=== PATIENT | female | born 1950 | race Caucasian/White ===

== ENCOUNTER 2018-12-28 16:11 | Inpatient (IN) | payer MEDICARE, MEDICAID ==
[~2018-12-28] VITALS: Ht 165.1 cm; Wt 92.7 kg
[2018-12-28] MEDS ORDERED: aspirin 81mg tab.chew PO ONE ×2 (16:20→17:10)
[2018-12-28] MEDS ORDERED: PARO20TA6 PO (16:31)
[2018-12-28] MEDS ORDERED: CARV-50 PO (16:31)
[2018-12-28] MEDS ORDERED: AMLO10TA PO (16:31)
[2018-12-28] MEDS ORDERED: PANT-47 PO (16:31)
[2018-12-28 16:53] LABS: BASOPHILS # (AUTO) 0.1 X10'3 (0-0.2); BASOPHILS % (AUTO) 0.6 % (0-1); EOSINOPHILS # (AUTO) 0.1 X10'3 (0-0.9); EOSINOPHILS % (AUTO) 1.3 % (0-6); HEMATOCRIT 39.9 % (35.0-45.0); HEMOGLOBIN 13.2 g/dl (12.0-16.0); LYMPHOCYTES # (AUTO) 2.3 X10'3 (1.1-4.8); MEAN CORPUSCULAR HEMOGLOBIN 29.9 PG (27.0-31.0); MEAN CORPUSCULAR HGB CONC 33.1 g/dL (33.0-36.5); MEAN CORPUSCULAR VOLUME 90.4 FL (78-98); MEAN PLATELET VOLUME 7.7 FL (7.4-10.4); MONOCYTES # (AUTO) 0.8 X10'3 (0-0.9); MONOCYTES % (AUTO) 7.8 % (2-12); NEUTROPHILS # (AUTO) 6.4 X10'3 (1.8-7.7); NEUTROPHILS % (AUTO) 66.3 % (42-75); PLATELET COUNT 257 X10'3 (140-440); RED BLOOD COUNT 4.42 X10'6 (4.20-5.60); RED CELL DISTRIBUTION WIDTH 13.5 % (11.5-14.5); WHITE BLOOD COUNT 9.6 X10'3 (4.5-11.0)
[2018-12-28 17:10] LABS: ALANINE AMINOTRANSFERASE 25 U/L (12-78); ALBUMIN 3.6 G/DL (3.4-5.0); ALKALINE PHOSPHATASE 95 IU/L (46-116); ANION GAP 10 (8-16); ASPARTATE AMINO TRANSFERASE 16 U/L (10-37); BILIRUBIN,TOTAL 0.5 MG/DL (0.1-1.0); BLOOD UREA NITROGEN 17 MG/DL (7-18); BUN/CREATININE RATIO 26.2 (6.6-38.0); CALCIUM 8.8 MG/DL (8.5-10.1); CHLORIDE 106 MMOL/L (99-107); CREATININE 0.65 MG/DL (0.40-0.90); GLUCOSE 100 MG/DL (70-104); POTASSIUM 3.4 MMOL/L (3.5-5.1); SODIUM 145 MMOL/L (135-145); TOTAL CARBON DIOXIDE 28.7 MMOL/L (24-32); TOTAL PROTEIN 7.1 G/DL (6.4-8.2); eGFR > 90 ML/MIN
[2018-12-28] MEDS ORDERED: aspirin 81mg tab.chew PO SCH (17:10)
[2018-12-28 17:16] LABS: MAGNESIUM 1.9 MG/DL (1.5-2.4)
--- NOTE | 2018-12-28 17:23 | NUR ---
Pt reports chest "aching" is 4/10 but that she does not want anything for pain at this time.
[2018-12-28] MEDS ORDERED: acetaminophen 325mg tablet PO ONE (17:40)
[2018-12-28] MEDS ORDERED: mag hydrox/Alum hydrox/simeth 30ml oral suspension PO PRN (17:50)
[2018-12-28] MEDS ORDERED: magnesium hydroxide 30ml (MOM) UD suspension PO PRN (17:50)
[2018-12-28] MEDS ORDERED: ondansetron/PF 4mg/2ml inj IV PRN (17:50)
[2018-12-28] MEDS ORDERED: morphine 2 MG/ML inj. syringe IV PRN ×2 (17:50)
[2018-12-28] MEDS ORDERED: acetaminophen 325mg tablet PO PRN (17:50)
[2018-12-28] MEDS ORDERED: enoxaparin 100mg/ml syringe SUBCUT ONE (17:57)
[2018-12-28] MEDS ORDERED: enoxaparin 60mg/0.6ml syringe SUBCUT ONE ×2 (18:15→20:00)
[2018-12-28] MEDS: carVEDilol 12.5mg tablet PO SCH ×2 (19:37→21:24)
--- NOTE | 2018-12-28 19:47 | NUR ---
Attempted to phone report. Receiving RN is not available to take report. Will phone back shortly.
[2018-12-28] MEDS ORDERED: enoxaparin 30mg/0.3ml syringe SUBCUT ONE (20:00)
[2018-12-28 20:15] VITALS: BP 125/53
--- NOTE | 2018-12-28 20:35 | NUR ---
Patient in room PCU 3014. I have received report from Sajan BARRON and had the opportunity to ask questions and assume patient care.
[2018-12-28 23:00] VITALS: BP 136/61
[2018-12-29 03:00] VITALS: BP 144/60
[2018-12-29 05:46] LABS: BASOPHILS % (AUTO) 0.5 % (0-1); EOSINOPHILS # (AUTO) 0.2 X10'3 (0-0.9); EOSINOPHILS % (AUTO) 1.8 % (0-6); HEMATOCRIT 37.2 % (35.0-45.0); HEMOGLOBIN 12.2 g/dl (12.0-16.0); LYMPHOCYTES # (AUTO) 2.7 X10'3 (1.1-4.8); LYMPHOCYTES % (AUTO) 29.8 % (21-51); MEAN CORPUSCULAR HEMOGLOBIN 29.7 PG (27.0-31.0); MEAN CORPUSCULAR HGB CONC 32.8 g/dL (33.0-36.5); MEAN CORPUSCULAR VOLUME 90.3 FL (78-98); MEAN PLATELET VOLUME 7.8 FL (7.4-10.4); MONOCYTES # (AUTO) 0.8 X10'3 (0-0.9); MONOCYTES % (AUTO) 8.8 % (2-12); NEUTROPHILS # (AUTO) 5.4 X10'3 (1.8-7.7); NEUTROPHILS % (AUTO) 59.1 % (42-75); PLATELET COUNT 247 X10'3 (140-440); RED BLOOD COUNT 4.12 X10'6 (4.20-5.60); RED CELL DISTRIBUTION WIDTH 13.3 % (11.5-14.5); WHITE BLOOD COUNT 9.1 X10'3 (4.5-11.0)
[2018-12-29 06:01] LABS: ALBUMIN 3.2 G/DL (3.4-5.0); ANION GAP 9 (8-16); BLOOD UREA NITROGEN 19 MG/DL (7-18); BUN/CREATININE RATIO 32.2 (6.6-38.0); CALCIUM 8.3 MG/DL (8.5-10.1); CHLORIDE 108 MMOL/L (99-107); CREATININE 0.59 MG/DL (0.40-0.90); GLUCOSE 105 MG/DL (70-104); SODIUM 145 MMOL/L (135-145); TOTAL CARBON DIOXIDE 28.2 MMOL/L (24-32); eGFR > 90 ML/MIN
[2018-12-29 06:30] VITALS: BP 157/63
--- NOTE | 2018-12-29 06:38 | NUR ---
Problems reprioritized. Patient report given, questions answered & plan of care reviewed with Maricarmen BARRON.
--- NOTE | 2018-12-29 06:38 | NUR ---
Patient in room PCU 3014A. I have received report from Dale BARRON and had the opportunity to ask questions and assume patient care.
--- NOTE | 2018-12-29 07:30 | NUR ---
Paged Dr Carter PAGER ID: [phone] MESSAGE: Maricarmen annamaria [phone]. RE Asha Moura 3014A. Pt has critical K of 3.0. Can I have protocol replacement orders? Thank you!
[2018-12-29] MEDS ORDERED: magnesium Cl slow-release 64mg tablet PO PRN (07:40)
[2018-12-29] MEDS ORDERED: potassium Cl 20 mEq SR tablet PO PRN (07:40)
[2018-12-29] MEDS ORDERED: potassium CL 10mEq/100ml bag 100 ML IV PRN (07:40)
[2018-12-29] MEDS ORDERED: magnesium 4gm in 100ml NS 100 ML IV PRN (07:40)
[2018-12-29] MEDS: amLODIPine 5mg tablet PO SCH (07:45)
[2018-12-29] MEDS: carVEDilol 12.5mg tablet PO SCH ×2 (07:45→20:26)
[2018-12-29] MEDS: aspirin 81mg tablet.DR PO SCH (07:45)
[2018-12-29] MEDS: PARoxetine 20mg tablet PO SCH (07:45)
[2018-12-29] MEDS: pantoprazole 40mg Tablet.DR PO SCH (07:45)
[2018-12-29] MEDS: enoxaparin 30mg/0.3ml syringe SUBCUT SCH ×2 (07:46→20:27)
[2018-12-29] MEDS: atorvastatin 20mg tablet PO SCH (07:46)
[2018-12-29] MEDS: potassium Cl 20 mEq SR tablet PO PRN ×3 (07:47→17:16)
[2018-12-29] MEDS: enoxaparin 60mg/0.6ml syringe SUBCUT SCH ×2 (07:47→20:27)
[2018-12-29] MEDS ORDERED: aminophylline 250mg/10ml inj. IV PRN (10:00)
[2018-12-29] MEDS ORDERED: metoprolol tartrate 1mg/ml inj IV PRN (10:00)
[2018-12-29] MEDS ORDERED: regadenoson 0.4mg/5ml syringe IV ONE (10:00)
[2018-12-29] MEDS ORDERED: nitroGLYCERIN 0.4mg SUBLingual tab SL PRN (10:00)
[2018-12-29 11:00] VITALS: BP 148/70
[2018-12-29 11:07] LABS: CHOLESTEROL 181 MG/DL (0-200); HDL CHOLESTEROL 45 MG/DL (35-60); LDL CHOLESTEROL 107 MG/DL (50-100); TRIGLYCERIDES 269 MG/DL (20-135)
[2018-12-29 15:00] VITALS: BP 129/52
--- NOTE | 2018-12-29 18:32 | NUR ---
Problems reprioritized. Patient report given, questions answered & plan of care reviewed with Dale BARRON.
--- NOTE | 2018-12-29 18:41 | NUR ---
Patient in room PCU 3014. I have received report from Maricarmen BARRON and had the opportunity to ask questions and assume patient care.
[2018-12-29 19:00] VITALS: BP 151/73
[2018-12-29 23:00] VITALS: BP_SYST 155; BP_SYST 162; BP_DIAS 53; BP_DIAS 63
[2018-12-30] VITALS (18 sets, daily range): BP systolic 138–207; BP diastolic 60–108
[2018-12-30 05:26] LABS: BASOPHILS # (AUTO) 0.1 X10'3 (0-0.2); BASOPHILS % (AUTO) 0.7 % (0-1); EOSINOPHILS # (AUTO) 0.1 X10'3 (0-0.9); EOSINOPHILS % (AUTO) 1.8 % (0-6); HEMATOCRIT 38.8 % (35.0-45.0); HEMOGLOBIN 12.9 g/dl (12.0-16.0); LYMPHOCYTES # (AUTO) 2.3 X10'3 (1.1-4.8); LYMPHOCYTES % (AUTO) 28.2 % (21-51); MEAN CORPUSCULAR HEMOGLOBIN 30.1 PG (27.0-31.0); MEAN CORPUSCULAR HGB CONC 33.4 g/dL (33.0-36.5); MEAN CORPUSCULAR VOLUME 90.2 FL (78-98); MEAN PLATELET VOLUME 7.8 FL (7.4-10.4); MONOCYTES # (AUTO) 0.8 X10'3 (0-0.9); MONOCYTES % (AUTO) 9.1 % (2-12); NEUTROPHILS % (AUTO) 60.2 % (42-75); PLATELET COUNT 237 X10'3 (140-440); RED CELL DISTRIBUTION WIDTH 13.5 % (11.5-14.5); WHITE BLOOD COUNT 8.3 X10'3 (4.5-11.0)
[2018-12-30 05:56] LABS: ALBUMIN 3.2 G/DL (3.4-5.0); ANION GAP 9 (8-16); BLOOD UREA NITROGEN 17 MG/DL (7-18); BUN/CREATININE RATIO 30.4 (6.6-38.0); CHLORIDE 110 MMOL/L (99-107); CREATININE 0.56 MG/DL (0.40-0.90); GLUCOSE 109 MG/DL (70-104); MAGNESIUM 2.3 MG/DL (1.5-2.4); POTASSIUM 4.2 MMOL/L (3.5-5.1); SODIUM 145 MMOL/L (135-145); TOTAL CARBON DIOXIDE 26.4 MMOL/L (24-32); eGFR > 90 ML/MIN
--- NOTE | 2018-12-30 06:15 | NUR ---
Problems reprioritized. Patient report given, questions answered & plan of care reviewed with Vasquez RN/Allie BARRON.
--- NOTE | 2018-12-30 06:20 | NUR ---
Patient in room PCU 3014. I have received report from Dale BARRON and had the opportunity to ask questions and assume patient care.
--- NOTE | 2018-12-30 06:25 | NUR ---
Patient in room PCU 3011. I have received report from Zachary and had the opportunity to ask questions and assume patient care.
[2018-12-30] MEDS: pantoprazole 40mg Tablet.DR PO SCH (07:23)
[2018-12-30] MEDS: PARoxetine 20mg tablet PO SCH (07:23)
[2018-12-30] MEDS: enoxaparin 30mg/0.3ml syringe SUBCUT SCH ×2 (07:23→20:10)
[2018-12-30] MEDS: aspirin 81mg tablet.DR PO SCH (07:23)
[2018-12-30] MEDS: atorvastatin 20mg tablet PO SCH (07:23)
[2018-12-30] MEDS: enoxaparin 60mg/0.6ml syringe SUBCUT SCH ×2 (07:24→20:08)
[2018-12-30] MEDS: carVEDilol 12.5mg tablet PO SCH ×2 (12:05→20:07)
[2018-12-30] MEDS: amLODIPine 5mg tablet PO SCH (12:06)
--- NOTE | 2018-12-30 12:39 | NUR ---
PAGER ID: [phone] MESSAGE: RE: Denisha Moura, Room 3014A. Pt back from stress test, awaiting report for test. Can Pt eat? -Vasquez [facility] #[id number] Dr. Carter paged concerning post stress test and Pt wanting to eat
--- NOTE | 2018-12-30 13:08 | NUR ---
PAGER ID: [phone] MESSAGE: RE: Denisha Moura. Room: [facility]. Stress test report posted for Pt. -Vasquez [facility] #[id number]
--- NOTE | 2018-12-30 13:45 | NUR ---
[phone] MESSAGE: RE: Denisha Moura, room: 3014A. Pt returned from stress test, report now available. Dr. Carter has viewed report and wants to know your thoughts. Thank you. -[facility] #[id number] Bette Borrego paged concerning Pt's stress test.
--- NOTE | 2018-12-30 13:57 | NUR ---
PAGER ID: [phone] MESSAGE: Re: Denisha Moura, Room: [facility]. Tried contacting Bette Elmo but she is gone for the day. -[facility] #2020 Dr. Carter paged concerning Bette Borrego not being available to view stress test notes
--- NOTE | 2018-12-30 14:22 | NUR ---
Page sent to Dr. Carter PAGER ID: [phone] MESSAGE: [phone] Denisha Moura attempted to contact Bette Borrego but she left for the day. Patient asking about food, may we resume her diet? Allie SAMANIEGO
--- NOTE | 2018-12-30 18:00 | NUR ---
I have reviewed Andria BARRON (orientee) charting and I agree with it.
--- NOTE | 2018-12-30 18:15 | NUR ---
Patient in room PCU 3014A. I have received report from ANDERSON Ovalle and had the opportunity to ask questions and assume patient care. Pt is alert and oriented X4, denies CP, n/v, dizziness, rated pain 0/10. [place] continue to monitor
--- NOTE | 2018-12-30 18:20 | NUR ---
Problems reprioritized. Patient report given, questions answered & plan of care reviewed with Jose BARRON.
--- NOTE | 2018-12-30 18:30 | NUR ---
Problems reprioritized. Patient report given, questions answered & plan of care reviewed with Jose.
[2018-12-31 02:00] VITALS: BP 126/53
[2018-12-31 06:01] LABS: BASOPHILS % (AUTO) 0.5 % (0-1); EOSINOPHILS # (AUTO) 0.1 X10'3 (0-0.9); EOSINOPHILS % (AUTO) 1.6 % (0-6); HEMATOCRIT 38.3 % (35.0-45.0); HEMOGLOBIN 12.9 g/dl (12.0-16.0); LYMPHOCYTES # (AUTO) 2.3 X10'3 (1.1-4.8); LYMPHOCYTES % (AUTO) 29.7 % (21-51); MEAN CORPUSCULAR HEMOGLOBIN 30.5 PG (27.0-31.0); MEAN CORPUSCULAR HGB CONC 33.6 g/dL (33.0-36.5); MEAN CORPUSCULAR VOLUME 90.8 FL (78-98); MEAN PLATELET VOLUME 7.9 FL (7.4-10.4); MONOCYTES # (AUTO) 0.8 X10'3 (0-0.9); MONOCYTES % (AUTO) 10.3 % (2-12); NEUTROPHILS # (AUTO) 4.6 X10'3 (1.8-7.7); NEUTROPHILS % (AUTO) 57.9 % (42-75); PLATELET COUNT 242 X10'3 (140-440); RED BLOOD COUNT 4.22 X10'6 (4.20-5.60); RED CELL DISTRIBUTION WIDTH 13.1 % (11.5-14.5); WHITE BLOOD COUNT 7.9 X10'3 (4.5-11.0)
--- NOTE | 2018-12-31 06:15 | NUR ---
Problems reprioritized. Patient report given, questions answered & plan of care reviewed with Jose BARRON.
--- NOTE | 2018-12-31 06:23 | NUR ---
Problems reprioritized. Patient report given, questions answered & plan of care reviewed with ANDERSON Hernandez. Patient stable at shift change.
--- NOTE | 2018-12-31 06:23 | NUR ---
Patient in room PCU 3013. I have received report from Jose and had the opportunity to ask questions and assume patient care.
[2018-12-31 06:28] LABS: ALBUMIN 3.2 G/DL (3.4-5.0); ANION GAP 9 (8-16); BLOOD UREA NITROGEN 14 MG/DL (7-18); BUN/CREATININE RATIO 24.1 (6.6-38.0); CALCIUM 9.3 MG/DL (8.5-10.1); CHLORIDE 107 MMOL/L (99-107); CREATININE 0.58 MG/DL (0.40-0.90); GLUCOSE 101 MG/DL (70-104); MAGNESIUM 2.4 MG/DL (1.5-2.4); POTASSIUM 3.8 MMOL/L (3.5-5.1); SODIUM 144 MMOL/L (135-145); TOTAL CARBON DIOXIDE 28.2 MMOL/L (24-32); eGFR > 90 ML/MIN
[2018-12-31 07:00] VITALS: BP 145/79
[2018-12-31] MEDS: PARoxetine 20mg tablet PO SCH (07:17)
[2018-12-31] MEDS: carVEDilol 12.5mg tablet PO SCH (07:17)
[2018-12-31] MEDS: atorvastatin 20mg tablet PO SCH (07:17)
[2018-12-31] MEDS: pantoprazole 40mg Tablet.DR PO SCH (07:18)
[2018-12-31] MEDS: aspirin 81mg tablet.DR PO SCH (07:18)
[2018-12-31] MEDS: amLODIPine 5mg tablet PO SCH (07:18)
[2018-12-31] MEDS: enoxaparin 60mg/0.6ml syringe SUBCUT SCH (07:19)
[2018-12-31] MEDS: enoxaparin 30mg/0.3ml syringe SUBCUT SCH (07:20)
[2018-12-31] MEDS ORDERED: clopidogrel 75mg tablet PO SCH (08:00)
[2018-12-31] MEDS ORDERED: NITR0.4T51 SL (09:47)
[2018-12-31] MEDS ORDERED: CLOP75TA35 PO (09:47)
[2018-12-31] MEDS ORDERED: ATOR20TA66 PO (09:47)
[2018-12-31 11:00] VITALS: BP 142/73
--- NOTE | 2018-12-31 12:50 | NUR ---
Pt DC'd home with sister. IV removed, canula intact. Tele-box removed and returned to [employer]. Pt stable upon DC, Vitals all within normal limits. Addendum: 12/31/18 at 1405 by Vasquez Evangelista RN Pt DC'd home with sister. IV removed, canula intact. Tele-box removed and returned to [employer]. Pt stable upon DC, Vitals all within normal limits. DC paperwork gone over with Pt, allowed Pt to ask questions concerning DC and then answered them. New prescriptions called into [facility] for Pt to pickup. Follow up appt made for Pt at [facility] in [place] on 01/15/19 at 1530. Pt's belongings gathered and sent with Pt. Pt wheeled down to lobby via wheelchair by student nurse. Pt left with sister in private vehicle for home in [place].
== END 2018-12-31 14:20 | disposition home or self-care (01) | DRG 282 ==
LOC: ER 16:11 → PCU 3S 20:30
PROVIDERS: ADMIT Family Medicine; ATTEND Family Medicine
PROC: 4A02XM4 Measurement of Cardiac Total Activity, External Approach (ICD-10-PCS; principal; 2018-12-29)
PROC: 3E033HZ Introduction of Radioactive Substance into Peripheral Vein, Percutaneous Approach (ICD-10-PCS; 2018-12-29)
DX: I21.4 Non-ST elevation (NSTEMI) myocardial infarction (principal); E78.5 Hyperlipidemia, unspecified; E87.6 Hypokalemia; F32.9 Major depressive disorder, single episode, unspecified; I20.9 Angina pectoris, unspecified; I10 Essential (primary) hypertension; J44.9 Chronic obstructive pulmonary disease, unspecified; K21.9 Gastro-esophageal reflux disease without esophagitis; Z80.3 Family history of malignant neoplasm of breast; Z90.49 Acquired absence of other specified parts of digestive tract; Z90.710 Acquired absence of both cervix and uterus
CPT/HCPCS: 36415; 71045; 78451; 80048; 80053; 80061; 83735; 83880; 84484; 85025; 87081; 93005; 93017; 93308; 99285; A9500; G0378; J0280; J1650; J2785

== ENCOUNTER 2021-08-22 14:45 | Outpatient (CLI) | payer MEDICARE, MEDICAID ==
[~2021-08-22 14:45] MED LIST: AMLO10TA PO; ATOR20TA66 PO; CARV-50 PO; CLOP75TA34 PO; NITR0.4T51 SL; PANT-47 PO; PARO20TA6 PO
== END 2021-08-22 23:59 | disposition home or self-care (01) ==
LOC: CARD DIAG 14:45
PROVIDERS: ATTEND Physician Assistant
DX: I05.8 Other rheumatic mitral valve diseases (principal); R03.0 Elevated blood-pressure reading, without diagnosis of hypertension; I25.2 Old myocardial infarction
CPT/HCPCS: 93306

== ENCOUNTER 2022-03-14 09:19 | Inpatient (IN) | payer MEDICARE, MEDICAID ==
[~2022-03-14] VITALS: Ht 165.1 cm; Wt 90.0 kg
--- NOTE | 2022-03-14 09:47 | NUR ---
pt is ao4 reports slight headache denies dizziness/lightheadedness. denies sob/cp. resp even unlabored on 2L NC. skin w/d/i pink.
[2022-03-14] MEDS ORDERED: ringers solution, lacted 1,000 ML IV ONE (09:50)
--- NOTE | 2022-03-14 10:12 | NUR ---
trop results given to caroline Valdez.
[2022-03-14 10:19] LABS: BASOPHILS % (AUTO) 0.3 % (0-1); EOSINOPHILS % (AUTO) 0 % (0-6); HEMATOCRIT 41.3 % (35.0-45.0); HEMOGLOBIN 13.5 g/dl (12.0-16.0); LYMPHOCYTES # (AUTO) 0.7 X10'3 (1.1-4.8); LYMPHOCYTES % (AUTO) 7.9 % (21-51); MEAN CORPUSCULAR HEMOGLOBIN 30.1 PG (27.0-31.0); MEAN CORPUSCULAR HGB CONC 32.8 g/dL (33.0-36.5); MEAN CORPUSCULAR VOLUME 91.7 FL (78-98); MEAN PLATELET VOLUME 6.9 FL (7.4-10.4); MONOCYTES # (AUTO) 0.2 X10'3 (0-0.9); MONOCYTES % (AUTO) 2.5 % (2-12); NEUTROPHILS # (AUTO) 7.5 X10'3 (1.8-7.7); NEUTROPHILS % (AUTO) 89.3 % (42-75); PLATELET COUNT 283 X10'3 (140-440); RED CELL DISTRIBUTION WIDTH 13.1 % (11.5-14.5); WHITE BLOOD COUNT 8.4 X10'3 (4.5-11.0)
[2022-03-14 10:28] LABS: APTT 28 SECONDS (22-32)
[2022-03-14 10:50] LABS: ALANINE AMINOTRANSFERASE 30 U/L (12-78); ALBUMIN 3.8 G/DL (3.4-5.0); ALKALINE PHOSPHATASE 104 IU/L (46-116); ANION GAP 12 (8-16); ASPARTATE AMINO TRANSFERASE 38 U/L (10-37); BILIRUBIN,TOTAL 0.3 MG/DL (0.1-1.0); BLOOD UREA NITROGEN 9 MG/DL (7-18); BUN/CREATININE RATIO 10.6 (6.6-38.0); CHLORIDE 103 MMOL/L (99-107); CREATININE 0.85 MG/DL (0.40-0.90); GLUCOSE 185 MG/DL (70-104); POTASSIUM 3.3 MMOL/L (3.5-5.1); SODIUM 141 MMOL/L (135-145); TOTAL CARBON DIOXIDE 25.7 MMOL/L (24-32); TOTAL PROTEIN 7.8 G/DL (6.4-8.2); eGFR 66 ML/MIN
[2022-03-14] MEDS ORDERED: acetaminophen 325mg tablet PO ONE (11:40)
[2022-03-14] MEDS ORDERED: morphine 2 MG/ML inj. syringe IV PRN ×2 (12:00)
[2022-03-14] MEDS ORDERED: HYDROcodone/acetaminophen 5mg/325mg tablet PO PRN (12:00)
[2022-03-14] MEDS ORDERED: magnesium Cl slow-release 64mg tablet PO PRN (12:00)
[2022-03-14] MEDS: normal saline 1000ml 1,000 ML IV SCH ×2 (12:00→20:32)
[2022-03-14] MEDS ORDERED: acetaminophen 650mg rectal suppository RC PRN (12:00)
[2022-03-14] MEDS ORDERED: ipratropium/albuterol 3ml nebule NEB PRN (12:00)
[2022-03-14] MEDS ORDERED: PERFLUTREN PROTEIN-A MICROSPHR (Optison) 0.22 MG/ML 3ML VIAL IV ONE (12:00)
[2022-03-14] MEDS ORDERED: potassium Cl 40MEQ/1/2NS 520ml 520 ML IV PRN (12:00)
[2022-03-14] MEDS ORDERED: ondansetron 4mg rapidly disintigrating tab PO PRN (12:00)
[2022-03-14] MEDS ORDERED: mag hydrox/Alum hydrox/simeth 30ml oral suspension PO PRN (12:00)
[2022-03-14] MEDS ORDERED: magnesium hydroxide 30ml (MOM) UD suspension PO PRN (12:00)
[2022-03-14] MEDS ORDERED: acetaminophen 325mg tablet PO PRN ×2 (12:00)
[2022-03-14] MEDS ORDERED: bisacodyl 10mg suppository rectal RC PRN (12:00)
[2022-03-14] MEDS ORDERED: nitroGLYCERIN 0.4mg SUBLingual tab SL PRN (12:00)
[2022-03-14] MEDS ORDERED: HYDROcodone/acetaminophen 10/325mg tab PO PRN (12:00)
[2022-03-14] MEDS ORDERED: magnesium 4gm in 100ml NS 100 ML IV PRN (12:00)
[2022-03-14] MEDS ORDERED: ondansetron/PF 4mg/2ml inj IV PRN (12:00)
[2022-03-14] MEDS ORDERED: potassium Cl 20 mEq SR tablet PO PRN (12:00)
[2022-03-14 13:25] LABS: CLARITY,URINE CLEAR (Clear); COLOR,URINE STRAW (Yellow); GLUCOSE, URINE 250 mg/dl (Neg); KETONES,URINE NEGATIVE (Neg); LEUKOCYTE ESTERASE ,URINE NEGATIVE (Neg); NITRITES, URINE NEGATIVE (Neg); OCCULT BLOOD,URINE SMALL (Neg); PROTEIN,URINE 100 mg/dl (Neg); UROBILINOGEN,URINE 0.2 E.U/dL (0.2-1.0)
[2022-03-14 13:27] LABS: UA COLLECTION TYPE NON-SPECIFIED
[2022-03-14 14:01] LABS: MUCUS STRANDS FEW /LPF (Neg); SQUAMOUS EPITHELIAL CELL,UR FEW /LPF (FEW)
[2022-03-14 14:02] LABS: BACTERIA,URINE FEW /HPF (Neg); RBC,URINE 0-2 /HPF (0-2); WBC,URINE 0-4 /HPF (0-4)
[2022-03-14] MEDS: methylPREDNISolone sod succ 125mg/2ml vial IV SCH ×2 (14:09→20:32)
[2022-03-14 14:16] LABS: PHOSPHORUS 3.5 MG/DL (2.3-4.5)
[2022-03-14] MEDS: ipratropium/albuterol 3ml nebule NEB SCH ×3 (14:42→23:00)
[2022-03-14] MEDS ORDERED: NITR0.4T48 SL (15:57)
[2022-03-14] MEDS ORDERED: CARV6.253 PO (15:57)
[2022-03-14] MEDS ORDERED: ALBU90AE IH (15:57)
[2022-03-14] MEDS ORDERED: PARO40TA4 PO (15:57)
[2022-03-14] MEDS ORDERED: ATOR20TA66 PO (16:05)
[2022-03-14] MEDS ORDERED: CLOP75TA34 PO (16:05)
--- NOTE | 2022-03-14 18:24 | NUR ---
report to timur whaley for continuation of care
[2022-03-14] MEDS ORDERED: heparin 10,000 units/1 ML INJ IV PRN (18:35)
[2022-03-14] MEDS ORDERED: heparin 10,000 units/1 ML INJ IV ONE (18:42)
[2022-03-14] MEDS ORDERED: heparin 25,000 UNIT/250ml bag 250 ML IV PRN (18:45)
--- NOTE | 2022-03-14 18:54 | NUR ---
Patient in room ED 3. I have received report from TATI BARRON and had the opportunity to ask questions and assume patient care.
[2022-03-14 19:30] VITALS: BP 180/84
[2022-03-14 19:50] LABS: APTT 26 SECONDS (22-32)
[2022-03-14] MEDS: docusate sod 100mg capsule PO SCH (20:00)
[2022-03-14] MEDS ORDERED: enoxaparin 100mg/ml syringe SUBCUT SCH (20:00)
[2022-03-14] MEDS: K and/or MAG REPLACEMENT MC SCH (20:00)
[2022-03-14] MEDS: carVEDilol 3.125mg tablet PO SCH (20:27)
[2022-03-14] MEDS: carvedilol 6.25mg tablet PO SCH (20:28)
--- NOTE | 2022-03-14 21:23 | NUR ---
3021-KELIN MCCOY-BP'S 183/94...PLEASE, CAN WE GET HYDRALAZINE 10 MG Q6 PRN FOR SYSTOLIC >160? VJ COFFMAN [id number]
[2022-03-14 22:00] VITALS: BP 164/73
[2022-03-14] MEDS: oseltamivir phos 75mg capsule PO SCH (22:26)
[2022-03-14] MEDS: hydrALAZINE 20mg/ml inj. IV PRN (22:51)
[2022-03-15 03:51] LABS: BASOPHILS % (AUTO) 0.2 % (0-1); EOSINOPHILS % (AUTO) 0 % (0-6); HEMATOCRIT 37.4 % (35.0-45.0); HEMOGLOBIN 12.1 g/dl (12.0-16.0); LYMPHOCYTES # (AUTO) 0.9 X10'3 (1.1-4.8); LYMPHOCYTES % (AUTO) 9.2 % (21-51); MEAN CORPUSCULAR HEMOGLOBIN 29.9 PG (27.0-31.0); MEAN CORPUSCULAR HGB CONC 32.4 g/dL (33.0-36.5); MEAN CORPUSCULAR VOLUME 92.5 FL (78-98); MEAN PLATELET VOLUME 7.4 FL (7.4-10.4); MONOCYTES # (AUTO) 0.9 X10'3 (0-0.9); MONOCYTES % (AUTO) 9.2 % (2-12); NEUTROPHILS # (AUTO) 8.3 X10'3 (1.8-7.7); NEUTROPHILS % (AUTO) 81.4 % (42-75); PLATELET COUNT 235 X10'3 (140-440); RED BLOOD COUNT 4.05 X10'6 (4.20-5.60); RED CELL DISTRIBUTION WIDTH 13.4 % (11.5-14.5); WHITE BLOOD COUNT 10.2 X10'3 (4.5-11.0)
[2022-03-15 04:00] VITALS: BP 182/84
[2022-03-15 04:06] LABS: HEMOGLOBIN A1C 6.2 % (4.5-6.2)
[2022-03-15 04:16] LABS: ALANINE AMINOTRANSFERASE 30 U/L (12-78); ALBUMIN 3.1 G/DL (3.4-5.0); ALBUMIN/GLOBULIN RATIO 0.9 (1.1-1.5); ALKALINE PHOSPHATASE 78 IU/L (46-116); ANION GAP 7 (8-16); ASPARTATE AMINO TRANSFERASE 52 U/L (10-37); BILIRUBIN,TOTAL 0.2 MG/DL (0.1-1.0); BLOOD UREA NITROGEN 14 MG/DL (7-18); CALCIUM 8.7 MG/DL (8.5-10.1); CHLORIDE 106 MMOL/L (99-107); CHOL/HDL RATIO 1.9 (0.00-4.99); CHOLESTEROL 154 MG/DL (0-200); CREATININE 0.61 MG/DL (0.40-0.90); GLUCOSE 145 MG/DL (70-104); HDL CHOLESTEROL 79 MG/DL (35-60); LDL CHOLESTEROL 65 MG/DL (50-100); PHOSPHORUS 2.7 MG/DL (2.3-4.5); POTASSIUM 3.3 MMOL/L (3.5-5.1); SODIUM 141 MMOL/L (135-145); TOTAL CARBON DIOXIDE 28.4 MMOL/L (24-32); TOTAL PROTEIN 6.5 G/DL (6.4-8.2); TRIGLYCERIDES 64 MG/DL (20-135); eGFR > 90 ML/MIN
[2022-03-15] MEDS: hydrALAZINE 20mg/ml inj. IV PRN ×2 (05:38→22:22)
[2022-03-15] MEDS: methylPREDNISolone sod succ 125mg/2ml vial IV SCH ×3 (05:41→13:35)
[2022-03-15 07:00] VITALS: BP 155/79
--- NOTE | 2022-03-15 07:18 | NUR ---
Problems reprioritized. Patient report given, questions answered & plan of care reviewed with NICOLE BARRON.
[2022-03-15] MEDS: ipratropium/albuterol 3ml nebule NEB SCH ×5 (07:48→23:00)
[2022-03-15] MEDS: K and/or MAG REPLACEMENT MC SCH ×2 (08:00→19:43)
[2022-03-15] MEDS ORDERED: amLODIPine 5mg tablet PO SCH (08:00)
[2022-03-15] MEDS ORDERED: atorvastatin 20mg tablet PO SCH (08:00)
[2022-03-15] MEDS: carvedilol 6.25mg tablet PO SCH ×2 (08:00→19:44)
[2022-03-15] MEDS: oseltamivir phos 75mg capsule PO SCH ×2 (08:29→19:52)
[2022-03-15] MEDS: docusate sod 100mg capsule PO SCH ×2 (08:30→19:44)
[2022-03-15] MEDS: atorvastatin 20mg tablet PO SCH (08:30)
[2022-03-15] MEDS: PARoxetine 20mg tablet PO SCH (08:30)
[2022-03-15] MEDS: clopidogrel 75mg tablet PO SCH (08:31)
[2022-03-15] MEDS: carVEDilol 3.125mg tablet PO SCH (08:31)
[2022-03-15] MEDS: aspirin 81mg tab.chew PO SCH (08:31)
[2022-03-15] MEDS: pantoprazole 40mg Tablet.DR PO SCH (08:31)
[2022-03-15] MEDS: potassium Cl 20 mEq SR tablet PO PRN ×3 (09:05→17:08)
[2022-03-15 11:00] VITALS: BP 153/81
[2022-03-15] MEDS: normal saline 1000ml 1,000 ML IV SCH (13:39)
[2022-03-15 13:55] LABS: CHOL/HDL RATIO 2.2 (0.00-4.99); CHOLESTEROL 173 MG/DL (0-200); HDL CHOLESTEROL 80 MG/DL (35-60); LDL CHOLESTEROL 73 MG/DL (50-100); TRIGLYCERIDES 109 MG/DL (20-135)
[2022-03-15 16:23] VITALS: BP 152/74
[2022-03-15 18:00] VITALS: BP_SYST 155; BP_SYST 178; BP_DIAS 79; BP_DIAS 91
--- NOTE | 2022-03-15 18:15 | NUR ---
Patient in room PCU 3021. I have received report from Richi BARRON and had the opportunity to ask questions and assume patient care.
[2022-03-15] MEDS: enoxaparin 100mg/ml syringe SUBCUT SCH (19:48)
[2022-03-15 22:00] VITALS: BP 188/101
[2022-03-15] MEDS: temazepam 15mg capsule PO PRN (22:11)
[2022-03-16] VITALS (7 sets, daily range): BP systolic 136–184; BP diastolic 62–92
--- NOTE | 2022-03-16 02:58 | NUR ---
PAGELois WOLF FOR SBP 180'S, HR TACHYCARDIC. HYDRALIZINE GIVEN WITH LITTLE AFFECT ON BLOOD PRESSURE. PATIENT TO FOLLOW UP WITH OUTPATIENT CARDIOLOGY, REFUSED RN INFUSION INTERVENTION AT THIS TIME PER DAY SHIFT RN
[2022-03-16] MEDS: hydrALAZINE 20mg/ml inj. IV PRN (04:05)
--- NOTE | 2022-03-16 07:04 | NUR ---
Problems reprioritized. Patient report given, questions answered & plan of care reviewed with NICOLE BARRON.
[2022-03-16 07:39] LABS: BASOPHILS % (AUTO) 0.2 % (0-1); EOSINOPHILS % (AUTO) 0 % (0-6); HEMATOCRIT 37.6 % (35.0-45.0); HEMOGLOBIN 12.1 g/dl (12.0-16.0); LYMPHOCYTES # (AUTO) 1.4 X10'3 (1.1-4.8); LYMPHOCYTES % (AUTO) 8.4 % (21-51); MEAN CORPUSCULAR HEMOGLOBIN 29.7 PG (27.0-31.0); MEAN CORPUSCULAR HGB CONC 32.2 g/dL (33.0-36.5); MEAN CORPUSCULAR VOLUME 92.5 FL (78-98); MEAN PLATELET VOLUME 7.2 FL (7.4-10.4); MONOCYTES # (AUTO) 1.2 X10'3 (0-0.9); MONOCYTES % (AUTO) 7.2 % (2-12); NEUTROPHILS # (AUTO) 14.4 X10'3 (1.8-7.7); NEUTROPHILS % (AUTO) 84.2 % (42-75); PLATELET COUNT 239 X10'3 (140-440); RED BLOOD COUNT 4.06 X10'6 (4.20-5.60); RED CELL DISTRIBUTION WIDTH 13.4 % (11.5-14.5); WHITE BLOOD COUNT 17.1 X10'3 (4.5-11.0)
[2022-03-16] MEDS: ipratropium/albuterol 3ml nebule NEB SCH ×4 (07:48→23:00)
[2022-03-16] MEDS: K and/or MAG REPLACEMENT MC SCH ×2 (08:00→19:53)
[2022-03-16] MEDS ORDERED: predniSONE 20 mg tablet PO SCH (08:00)
[2022-03-16] MEDS ORDERED: losartan 25mg tablet PO SCH ×2 (08:00)
[2022-03-16] MEDS: oseltamivir phos 75mg capsule PO SCH ×2 (08:00→19:58)
[2022-03-16] MEDS: clopidogrel 75mg tablet PO SCH (08:02)
[2022-03-16] MEDS: docusate sod 100mg capsule PO SCH ×2 (08:02→19:58)
[2022-03-16] MEDS: enoxaparin 100mg/ml syringe SUBCUT SCH ×2 (08:02→19:58)
[2022-03-16] MEDS: atorvastatin 20mg tablet PO SCH (08:03)
[2022-03-16] MEDS: aspirin 81mg tab.chew PO SCH (08:04)
[2022-03-16] MEDS: carvedilol 6.25mg tablet PO SCH ×2 (08:04→19:58)
[2022-03-16] MEDS: pantoprazole 40mg Tablet.DR PO SCH (08:04)
[2022-03-16] MEDS: PARoxetine 20mg tablet PO SCH (08:04)
--- NOTE | 2022-03-16 08:18 | NUR ---
notified of 10 second run of SVT noted on monitor. Pt was asymptomatic at the time. WCTM
[2022-03-16 09:24] LABS: ALANINE AMINOTRANSFERASE 31 U/L (12-78); ALBUMIN 3.1 G/DL (3.4-5.0); ALBUMIN/GLOBULIN RATIO 0.9 (1.1-1.5); ALKALINE PHOSPHATASE 65 IU/L (46-116); ANION GAP 6 (8-16); ASPARTATE AMINO TRANSFERASE 55 U/L (10-37); BILIRUBIN,TOTAL 0.4 MG/DL (0.1-1.0); BLOOD UREA NITROGEN 20 MG/DL (7-18); BUN/CREATININE RATIO 33.3 (6.6-38.0); CHLORIDE 104 MMOL/L (99-107); GLUCOSE 116 MG/DL (70-104); MAGNESIUM 2.1 MG/DL (1.5-2.4); PHOSPHORUS 3.1 MG/DL (2.3-4.5); POTASSIUM 3.6 MMOL/L (3.5-5.1); SODIUM 140 MMOL/L (135-145); TOTAL CARBON DIOXIDE 29.7 MMOL/L (24-32); TOTAL PROTEIN 6.5 G/DL (6.4-8.2); eGFR > 90 ML/MIN
[2022-03-16] MEDS ORDERED: potassium Cl 20 mEq SR tablet PO STA (11:11)
[2022-03-16] MEDS ORDERED: magnesium oxide 400mg tablet PO ONE (11:15)
[2022-03-17] VITALS (7 sets, daily range): BP systolic 120–176; BP diastolic 64–93
[2022-03-17] MEDS: temazepam 15mg capsule PO PRN (00:05)
[2022-03-17] MEDS: hydrALAZINE 20mg/ml inj. IV PRN (02:42)
[2022-03-17] MEDS: normal saline 1000ml 1,000 ML IV SCH (04:02)
--- NOTE | 2022-03-17 06:26 | NUR ---
Problems reprioritized. Patient report given, questions answered & plan of care reviewed with ANDERSON Stoddard.
[2022-03-17] MEDS: ipratropium/albuterol 3ml nebule NEB SCH ×5 (07:00→23:00)
[2022-03-17 07:01] LABS: BASOPHILS % (AUTO) 0.2 % (0-1); EOSINOPHILS % (AUTO) 0 % (0-6); HEMATOCRIT 37.6 % (35.0-45.0); HEMOGLOBIN 12.3 g/dl (12.0-16.0); LYMPHOCYTES # (AUTO) 2.9 X10'3 (1.1-4.8); LYMPHOCYTES % (AUTO) 24.1 % (21-51); MEAN CORPUSCULAR HEMOGLOBIN 30.3 PG (27.0-31.0); MEAN CORPUSCULAR HGB CONC 32.8 g/dL (33.0-36.5); MEAN CORPUSCULAR VOLUME 92.3 FL (78-98); MEAN PLATELET VOLUME 7.5 FL (7.4-10.4); MONOCYTES % (AUTO) 8.2 % (2-12); NEUTROPHILS % (AUTO) 67.5 % (42-75); PLATELET COUNT 220 X10'3 (140-440); RED BLOOD COUNT 4.08 X10'6 (4.20-5.60); RED CELL DISTRIBUTION WIDTH 13.6 % (11.5-14.5); WHITE BLOOD COUNT 11.9 X10'3 (4.5-11.0)
[2022-03-17 07:23] LABS: ALANINE AMINOTRANSFERASE 28 U/L (12-78); ALBUMIN 2.9 G/DL (3.4-5.0); ALBUMIN/GLOBULIN RATIO 0.9 (1.1-1.5); ALKALINE PHOSPHATASE 65 IU/L (46-116); ANION GAP 9 (8-16); ASPARTATE AMINO TRANSFERASE 32 U/L (10-37); BILIRUBIN,TOTAL 0.6 MG/DL (0.1-1.0); BLOOD UREA NITROGEN 17 MG/DL (7-18); BUN/CREATININE RATIO 33.3 (6.6-38.0); CALCIUM 8.7 MG/DL (8.5-10.1); CHLORIDE 103 MMOL/L (99-107); CREATININE 0.51 MG/DL (0.40-0.90); GLUCOSE 103 MG/DL (70-104); MAGNESIUM 2.1 MG/DL (1.5-2.4); PHOSPHORUS 2.9 MG/DL (2.3-4.5); POTASSIUM 3.3 MMOL/L (3.5-5.1); SODIUM 141 MMOL/L (135-145); TOTAL CARBON DIOXIDE 29.2 MMOL/L (24-32); TOTAL PROTEIN 6.2 G/DL (6.4-8.2); eGFR > 90 ML/MIN
[2022-03-17] MEDS: K and/or MAG REPLACEMENT MC SCH ×2 (08:00→20:00)
[2022-03-17] MEDS ORDERED: nitroGLYCERIN-Tridil 50MG/D5W 250 ML IV ONE (08:02)
[2022-03-17] MEDS ORDERED: verapamil 2.5 mg/ml inj IV ONE (08:02)
[2022-03-17] MEDS ORDERED: LIDOcaine 1% (10mg/ml) 2ml vial ONE (08:02)
[2022-03-17] MEDS ORDERED: fentaNYL/PF 50MCG/1 ML 2ML syringe ONE (08:02)
[2022-03-17] MEDS ORDERED: midazolam 1 mg/ML 2ml injection ONE (08:02)
[2022-03-17] MEDS ORDERED: iohexol 350MG/ML 100ml bottle IV ONE ×2 (08:03→08:35)
[2022-03-17] MEDS ORDERED: heparin 1,000unit/ml 10ml vial 10 ML ONE (08:03)
[2022-03-17] MEDS ORDERED: aspirin 325mg tablet ONE (08:34)
[2022-03-17] MEDS ORDERED: ticagrelor 90mg tablet ONE (08:34)
[2022-03-17] MEDS ORDERED: metoprolol tartrate 25mg tablet PO ONE (10:05)
[2022-03-17] MEDS ORDERED: losartan 50mg tablet PO ONE (10:10)
[2022-03-17] MEDS: aspirin 81mg tab.chew PO SCH (10:26)
[2022-03-17] MEDS: atorvastatin 20mg tablet PO SCH (10:28)
[2022-03-17] MEDS: docusate sod 100mg capsule PO SCH ×2 (10:28→19:49)
[2022-03-17] MEDS: oseltamivir phos 75mg capsule PO SCH ×2 (10:28→19:51)
[2022-03-17] MEDS: pantoprazole 40mg Tablet.DR PO SCH (10:32)
[2022-03-17] MEDS: predniSONE 20 mg tablet PO SCH (10:32)
[2022-03-17] MEDS: PARoxetine 20mg tablet PO SCH (10:32)
[2022-03-17] MEDS: ticagrelor 90mg tablet PO SCH ×2 (10:36→19:48)
[2022-03-17] MEDS: potassium Cl 20 mEq SR tablet PO SCH (11:26)
[2022-03-17] MEDS: LORazepam 0.5 MG tablet PO PRN (11:26)
[2022-03-17] MEDS ORDERED: LORazepam 0.5 MG tablet PO PRN (11:40)
[2022-03-17] MEDS: metoprolol tartrate 25mg tablet PO SCH (19:51)
[2022-03-17] MEDS ORDERED: metoprolol tartrate 25mg tablet PO SCH (20:00)
[2022-03-17] MEDS ORDERED: Melatonin 3mg tablet PO SCH (21:00)
[2022-03-18 06:00] VITALS: BP 164/84
[2022-03-18 07:00] LABS: BASOPHILS % (AUTO) 0.2 % (0-1); EOSINOPHILS % (AUTO) 0.2 % (0-6); HEMATOCRIT 36.8 % (35.0-45.0); HEMOGLOBIN 11.9 g/dl (12.0-16.0); LYMPHOCYTES # (AUTO) 2.2 X10'3 (1.1-4.8); LYMPHOCYTES % (AUTO) 19.7 % (21-51); MEAN CORPUSCULAR HEMOGLOBIN 29.9 PG (27.0-31.0); MEAN CORPUSCULAR HGB CONC 32.4 g/dL (33.0-36.5); MEAN CORPUSCULAR VOLUME 92.4 FL (78-98); MEAN PLATELET VOLUME 7.5 FL (7.4-10.4); MONOCYTES # (AUTO) 1.1 X10'3 (0-0.9); NEUTROPHILS # (AUTO) 7.8 X10'3 (1.8-7.7); NEUTROPHILS % (AUTO) 69.9 % (42-75); PLATELET COUNT 234 X10'3 (140-440); RED BLOOD COUNT 3.98 X10'6 (4.20-5.60); RED CELL DISTRIBUTION WIDTH 13.4 % (11.5-14.5); WHITE BLOOD COUNT 11.2 X10'3 (4.5-11.0)
[2022-03-18] MEDS: ipratropium/albuterol 3ml nebule NEB SCH ×3 (07:27→15:10)
[2022-03-18] MEDS: K and/or MAG REPLACEMENT MC SCH (08:00)
[2022-03-18] MEDS ORDERED: ticagrelor 90mg tablet PO SCH (08:00)
[2022-03-18] MEDS ORDERED: losartan 50mg tablet PO SCH (08:00)
[2022-03-18] MEDS: LORazepam 0.5 MG tablet PO PRN (08:18)
[2022-03-18] MEDS: docusate sod 100mg capsule PO SCH (08:18)
[2022-03-18] MEDS: ticagrelor 90mg tablet PO SCH (08:19)
[2022-03-18] MEDS: atorvastatin 20mg tablet PO SCH (08:20)
[2022-03-18] MEDS: aspirin 81mg tab.chew PO SCH (08:20)
[2022-03-18] MEDS: metoprolol tartrate 25mg tablet PO SCH (08:20)
[2022-03-18] MEDS: pantoprazole 40mg Tablet.DR PO SCH (08:21)
[2022-03-18] MEDS: oseltamivir phos 75mg capsule PO SCH (08:21)
[2022-03-18] MEDS: PARoxetine 20mg tablet PO SCH (08:21)
[2022-03-18] MEDS: predniSONE 20 mg tablet PO SCH (08:21)
[2022-03-18] MEDS: potassium Cl 20 mEq SR tablet PO SCH (08:22)
[2022-03-18 08:33] LABS: ALANINE AMINOTRANSFERASE 32 U/L (12-78); ALBUMIN 2.8 G/DL (3.4-5.0); ALBUMIN/GLOBULIN RATIO 0.8 (1.1-1.5); ALKALINE PHOSPHATASE 60 IU/L (46-116); ANION GAP 6 (8-16); ASPARTATE AMINO TRANSFERASE 28 U/L (10-37); BILIRUBIN,TOTAL 0.6 MG/DL (0.1-1.0); BLOOD UREA NITROGEN 15 MG/DL (7-18); BUN/CREATININE RATIO 24.6 (6.6-38.0); CALCIUM 8.5 MG/DL (8.5-10.1); CHLORIDE 104 MMOL/L (99-107); CREATININE 0.61 MG/DL (0.40-0.90); GLUCOSE 112 MG/DL (70-104); MAGNESIUM 2.1 MG/DL (1.5-2.4); PHOSPHORUS 3.6 MG/DL (2.3-4.5); POTASSIUM 3.5 MMOL/L (3.5-5.1); SODIUM 140 MMOL/L (135-145); TOTAL CARBON DIOXIDE 30.2 MMOL/L (24-32); TOTAL PROTEIN 6.2 G/DL (6.4-8.2); eGFR > 90 ML/MIN
[2022-03-18] MEDS ORDERED: ASPI81TA53 PO (10:37)
[2022-03-18] MEDS ORDERED: ATOR40TA PO (10:37)
[2022-03-18] MEDS ORDERED: TICA90TA PO (10:37)
[2022-03-18 11:00] VITALS: BP 140/63
[2022-03-18] MEDS ORDERED: PRED20TA PO (12:29)
[2022-03-18] MEDS ORDERED: TAM75C PO (12:29)
[2022-03-18] MEDS ORDERED: LORA-268 PO (12:29)
[2022-03-18] MEDS ORDERED: TEMA15CA PO (12:29)
[2022-03-18] MEDS ORDERED: LOSA100T57 PO (12:29)
[2022-03-18 14:52] VITALS: BP 137/70
--- NOTE | 2022-03-18 14:53 | NUR ---
Pts friend will pick her up. She should be here about 1715 to p/u lori porraspon and then come back with medication. Called [facility] on [address] to confirm all meds have been electronically rec'd.
--- NOTE | 2022-03-18 17:32 | NUR ---
Pt stable for d/c per MD orders Rev'd all d/c ppwk with patient - all questions, comments, concerns answered at this time. PIV was removed and coban applied. Tele box removed and returned to telecommunications administrator. Mj was p/u by friend and I was able to verify that she has it before pt leaving the hospital. All personal belongings were sent with the patient and she was wheeled out in w/c by nursing staff to private vehicle where pts friend was waiting.
== END 2022-03-18 17:24 | disposition home or self-care (01) | DRG 246 ==
LOC: ER 09:19 → ED HOLD 12:28 → PCU 3S 19:50
PROVIDERS: ADMIT Family Medicine; ATTEND Family Medicine
PROC: 4A023N7 Measurement of Cardiac Sampling and Pressure, Left Heart, Percutaneous Approach (ICD-10-PCS; principal; 2022-03-17)
PROC: 027034Z Dilation of Coronary Artery, One Artery with Drug-eluting Intraluminal Device, Percutaneous Approach (ICD-10-PCS; 2022-03-17)
PROC: B2111ZZ Fluoroscopy of Multiple Coronary Arteries using Low Osmolar Contrast (ICD-10-PCS; 2022-03-17)
DX: I21.4 Non-ST elevation (NSTEMI) myocardial infarction (principal); J96.01 Acute respiratory failure with hypoxia; I47.1 Supraventricular tachycardia; I50.20 Unspecified systolic (congestive) heart failure; J44.1 Chronic obstructive pulmonary disease with (acute) exacerbation; E78.00 Pure hypercholesterolemia, unspecified; E87.6 Hypokalemia; F41.9 Anxiety disorder, unspecified; G47.00 Insomnia, unspecified; F32.A Depression, unspecified; I11.0 Hypertensive heart disease with heart failure; I25.10 Atherosclerotic heart disease of native coronary artery without angina pectoris; F41.1 Generalized anxiety disorder; I49.3 Ventricular premature depolarization; E78.5 Hyperlipidemia, unspecified; J10.1 Influenza due to other identified influenza virus with other respiratory manifestations; K21.9 Gastro-esophageal reflux disease without esophagitis; I25.2 Old myocardial infarction; Z79.02 Long term (current) use of antithrombotics/antiplatelets; Z79.82 Long term (current) use of aspirin; Z90.49 Acquired absence of other specified parts of digestive tract; Z90.710 Acquired absence of both cervix and uterus; Z95.5 Presence of coronary angioplasty implant and graft; Z79.899 Other long term (current) drug therapy; Z80.3 Family history of malignant neoplasm of breast; T38.0X5A Adverse effect of glucocorticoids and synthetic analogues, initial encounter; Y92.230 Patient room in hospital as the place of occurrence of the external cause; D72.829 Elevated white blood cell count, unspecified
CPT/HCPCS: 93306; 93458; 96360; 99285; C9600; 36415; 71045; 80053; 80061; 81001; 83036; 83605; 83735; 83880; 84100; 84145; 84443; 84484; 85025; 85610; 85730; 87040; 87081; 93005; 94640; 94760; 97161; 97530; 99152; 99153; A4615; C1725; C1751; C1769; C1874; C1894; G0378; J0360; J1644; J1650; J2250; J2930; J3010; J3490; J7030; J7120; J7512; Q9967

== ENCOUNTER 2023-02-21 14:08 | Outpatient (CLI) | payer MEDICARE, MEDICAID ==
[~2023-02-21] VITALS: Ht 165.1 cm; Wt 90.7 kg
[~2023-02-21 14:08] MED LIST changes: +ALBU90AE IH; +ASPI81TA53 PO; -ATOR20TA66 PO; -CARV-50 PO; +CARV6.253 PO; -CLOP75TA34 PO; +LORA-268 PO; +LOSA100T58 PO; +NITR0.4T48 SL; -NITR0.4T51 SL; -PARO20TA6 PO; +PARO40TA4 PO; +PRED20TA PO; +TAM75C PO; +TEMA15CA PO; +TICA90TA PO
[2023-02-21] MEDS ORDERED: albuterol 2.5 MG/3 ML nebule NEB ONE (14:55)
[2023-02-21 15:00] VITALS: PULSE 64; RESP 16; O2SAT 98
== END 2023-02-21 23:59 | disposition home or self-care (01) ==
LOC: RT 14:08
PROVIDERS: ATTEND Physician Assistant
DX: R94.2 Abnormal results of pulmonary function studies (principal); J44.9 Chronic obstructive pulmonary disease, unspecified; R06.02 Shortness of breath
CPT/HCPCS: 94060; 94760